=== PATIENT | male | born 1960 | race Caucasian/White ===

== ENCOUNTER 2020-09-03 10:11 | Emergency (ER) | payer OTHER ==
[~2020-09-03] VITALS: Ht 182.9 cm; Wt 159.2 kg
[2020-09-03 10:15] VITALS: Ht 182.9 cm; Wt 159.2 kg
[2020-09-03 12:05] LABS: PLATELET COUNT 139 x10^3mcL (130-400)
[2020-09-03 12:21] VITALS: BP 112/57
[2020-09-03 12:53] LABS: BAND NEUTROPHIL 6 % (0-10); MONOCYTE 3 % (0-7); SEGMENTED NEUTROPHILS 87 % (37-75); rbc morphology (normal/abnorm) NORMAL (NORMAL)
== END 2020-09-03 12:21 | disposition home or self-care (01) ==
LOC: ED 10:11
PROVIDERS: Emergency Medicine
DX: L03.115 Cellulitis of right lower limb (principal); I10 Essential (primary) hypertension; Z20.828 Contact with and (suspected) exposure to other viral communicable diseases
CPT/HCPCS: Q0092